=== PATIENT | female | born 1955 | race Caucasian/White ===

== ENCOUNTER → 2017-12-30 | Outpatient (CLI) | payer BC ==
[~2017-12-30] MED LIST: ASPI-757 PO; ATOR40TA24 PO; CLOP75TA43 PO; LIPITOR; MULT1CAP59 PO; [UNRECOGNIZED DRUG - CODE] PO
--- NOTE | 2017-12-30 15:10 | RADIOLOGY IMAGING REPORT ---
[place] [facility] [place] NAME: JUNE BURTON : [id number] MR: [id number] V: [id number] EXAM DATE: [id number] ORDERING PHYSICIAN: EDGARDO BAEZ TECHNOLOGIST: Francesca Dominguez PROCEDURE:BILATERAL DIGITAL SCREENING MAMMOGRAM WITH CAD ASSISTED INTERPRETATION & 3D TOMOSYNTHESIS COMPARISON:Prior mammograms 12/26/16, 09/05/15, 09/05/14, 08/24/13, 08/20/12, 07/31/11. INDICATIONS:screening FINDINGS: There is predominant fatty replacement throughout the breasts. The parenchymal pattern has remained stable allowing for difference in mammographic technique & patient positioning. There is no evidence of malignant appearing mass, malignant appearing calcifications or other secondary sign of malignancy in either breast. DIAGNOSTIC CATEGORY 1--NEGATIVE. RECOMMENDATIONS: ROUTINE MAMMOGRAM AND CLINICAL EVALUATION. IMPRESSION: BIRADS 1: Negative. No significant abnormality is seen. Dictated by: Fatimah Cervantes M.D. on 12/30/2017 at 15:03 Transcribed by: SAI on 12/30/2017 at 15:07 Approved by: Fatimah Cervantes M.D. on 12/30/2017 at 15:07 [facility]
== END ==
LOC: MAMO 01:08
PROVIDERS: ATTEND Family Medicine
DX: Z12.31 Encounter for screening mammogram for malignant neoplasm of breast (principal)
CPT/HCPCS: 77063; 77067

== ENCOUNTER → 2018-05-12 | Outpatient (CLI) | payer MEDICARE, BC ==
--- NOTE | 2018-05-12 15:39 | RADIOLOGY IMAGING REPORT ---
FACILITY: [facility] PATIENT NAME: Venice Montenegro : 1955 MR: [id number] V: [id number] EXAM DATE: ORDERING PHYSICIAN: CAT BALDWIN TECHNOLOGIST: [place] [facility] [place] : 1955 Visit/Account:[id number] Date of Sevice: 05/12/2018 Exam type: VENOUS DOPP LOW LEFT EXTREMITY History: Left calf pain Comparison: None. Findings: The flexion remains were imaged including the left common femoral vein, greater saphenous vein, popli teal vein, posterior tibial vein, peroneal vein and anterior tibial veins revealing no evidence of in traluminal thrombi the veins were compressible and demonstrated augmentation IMPRESSION: 1. No sonographic evidence DVT involving the left lower extremity veins Report Dictated By: Fatimah Cervantes MD at 05/12/2018 3:34 PM Report E-Signed By: Fatimah Cervantes MD at 05/12/2018 3:35 PM WSN:[email or web address]
== END ==
LOC: US 13:48
PROVIDERS: ATTEND Physical Medicine & Rehabilitation Pain Medicine
DX: M79.662 Pain in left lower leg (principal)